=== PATIENT | male | born 1945 | race Caucasian/White ===

== ENCOUNTER 2016-09-08 11:10 | Emergency (ER) | payer MEDICARE, OTHER ==
[~2016-09-08] VITALS: Ht 180.3 cm; Wt 66.1 kg
[2016-09-08 11:22] VITALS: BP 169/78
[2016-09-08] MEDS ORDERED: LIDOCAINE 1%, 20ML SQ ONE (12:00)
[2016-09-08] MEDS ORDERED: LIDOCAINE 1%, 20ML ONE (12:08)
== END 2016-09-08 12:36 | disposition home or self-care (01) ==
LOC: ED 12:04
DX: L02.211 Cutaneous abscess of abdominal wall (principal)
CPT/HCPCS: 10060